=== PATIENT | male | born 1970 | race Caucasian/White ===

== ENCOUNTER 2019-08-19 05:10 | Day surgery (SDC) | payer BC ==
[~2019-08-19] VITALS: Ht 172.7 cm; Wt 101.6 kg
[2019-08-19 05:49] LABS: ANION GAP 10.4 mmol/L (8-16); CALCIUM 8.4 mg/dL (8.5-10.1); CARBON DIOXIDE 30.6 mmol/L (21.0-32.0); CREATININE - SERUM 1.2 mg/dL (0.6-1.3)
[2019-08-19 06:08] VITALS: BP 172/131; Ht 172.7 cm; Wt 101.6 kg
[2019-08-19 06:28] LABS: BASOPHILS 0.5 % (0-2); EOSINOPHILS 1.8 % (0-7); HEMATOCRIT 42.6 % (42.0-54.0); HEMOGLOBIN 15.7 g/dL (13.5-17.5); IMMATURE GRANULOCYTES 0.2 % (0-5); LYMPHOCYTES 30.3 % (15-50); MCH 31.6 pg (26.0-34.0); MCHC 36.9 g/dL (31.0-37.0); MCV 85.7 fL (80.0-100.0); MEAN PLATELET VOLUME 10.2 fL (7.4-10.4); NEUTROPHILS 58.2 % (40-80); PLATELET COUNT 241 10x3/uL (130-400); RBC 4.97 10x6/uL (4.20-6.10); RDW 12.9 % (11.5-14.5)
[2019-08-19] MEDS ORDERED: HYDROCODON-ACE1 EA10 PO (08:39)
--- NOTE | 2019-08-19 09:52 | NUR ---
0943-REC'D FROM RR. DROWSY, EASILY AROUSED WITH VERBAL STIMULI. DENIES PAIN. DRESSING TO ABD CDI. ICE PACK APPLIED UPON ARRIVAL FROM RR. REVIEWED DISCHARGE CRITERIA. CL IN EASY REACH. FAMILY AT BEDSIDE.
--- NOTE | 2019-08-19 09:53 | NUR ---
8949-FULL LIQUID TRAY TO ROOM.
--- NOTE | 2019-08-19 10:46 | NUR ---
1030-UP TO RESTROOM. AMBULATED WITH SLOW STEADY GAIT. WAS ABLE TO URINATE. VSS. DRESSING TO ABD CDI. REPORTS PAIN 11/10. REMOVED IV FROM LEFT HAND WITH CATH INTACT,DISPOSED INTO SHARPS,COVERED SITE WITH GUAZE,SECURED WITH MEDIPORE TAPE. CL IN EASY REACH. AT BEDSIDE
--- NOTE | 2019-08-19 10:48 | NUR ---
1040-REVIEWED POST OPERATIVE INSTRUCTIONS AND FOLLOW UP APPOINTMENT. ALSO,REVIEWED IMPORTANCE OF MEDICATION COMPLIANCE AND FOLLOWING UP WITH PCP WHO PRESCRIBED HTN MEDICATION AND PT REPORTS HE DOES NOT TAKE DUE TO IT DOESN'T MAKE HIM FEEL GOOD. VERBALIZED UNDERSTANDING
--- NOTE | 2019-08-19 10:50 | NUR ---
1045-ESCORTED OUT VIA W/C BY STAFF WITH SPOUSE AWAITING TO DRIVE HOME
--- NOTE | 2019-08-23 10:48 | OP ---
PATIENT NAME: KARLA YEE MEDICAL RECORD: [id number] :68 LOCATION:[facility] ADMISSION DATE: SURGEON: YOHANNES FORREST MD DATE OF OPERATION: 08/19/2019 PREOPERATIVE DIAGNOSIS: Ventral hernia. POSTOPERATIVE DIAGNOSIS: Ventral hernia. PROCEDURE: 1. Diagnostic laparoscopy. 2. Ventral hernia repair without mesh. SURGEON: Yohannes Forrest MD REPORT OF PROCEDURE: The patient's abdomen was prepped and draped in sterile fashion. A Veress needle was inserted in the left upper quadrant and the abdomen was insufflated. A 5-mm Visiport trocar was inserted in the left lateral abdomen. We could see the Veress needle and there was no sign of any injury to bowel or surrounding structures. Another 5-mm trocar was placed in the left upper quadrant. With this, we were able to evaluate the abdominal wall. The patient had an old incision in the right lower quadrant from previous open appendectomy. There was some fatty tissue adherent to it, but no sign of any herniation. The patient did have a hernia just above the umbilicus in the midline of the abdomen. I took down some of the falciform ligament, so I could see the anterior abdominal wall a little more clearly and could see that there was just a single small opening above the umbilicus. We went ahead and removed the insufflation and the trocars. A longitudinal incision was made overlying the hernia just above the umbilicus in the midline. We dissected down through the subcutaneous tissues and encountered a small hernia sac. This hernia sac was dissected free and pushed back into the abdominal cavity. The hernia defect was a little over a centimeter in greatest diameter and the fascial edges were cleaned off and the fascia was then reapproximated transversely using interrupted 0 Prolenes times 3. The wound was then irrigated out thoroughly with normal saline and any bleeding that was found was treated with electrocautery. The subcutaneous tissues were reapproximated with interrupted 3-0 Vicryl and the skin incisions were all closed with subcutaneous 5-0 Monocryl. A total of 10 mL of 0.25% Marcaine with epinephrine was infused into the surrounding tissues and the wounds were dressed appropriately. COMPLICATIONS: None. CONDITION: Stable. ANESTHESIA: General endotracheal and local. BLOOD LOSS: Minimal. 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
== END 2019-08-19 10:45 | disposition home or self-care (01) ==
LOC: D.OPS 05:10 → D.PAN 07:30 → D.OPS 07:30 → D.PAN 09:00 → D.OPS 10:00 → D.PAN 10:00 → D.OPS 10:45
PROVIDERS: ATTEND Surgery
DX: K43.9 Ventral hernia without obstruction or gangrene (principal)

== ENCOUNTER → 2020-05-21 10:18 | Outpatient (CLI) | payer BC ==
[2019-08-19 06:08] VITALS: BMI 34.1
[~2020-05-21 10:18] MED LIST: HYDROCODON-ACE1 EA10 PO
== END | disposition home or self-care (01) ==
LOC: D.CT 10:18
PROVIDERS: ATTEND Surgery
DX: K43.9 Ventral hernia without obstruction or gangrene (principal); R10.9 Unspecified abdominal pain